=== PATIENT | male | born 1985 | race Caucasian/White ===

== ENCOUNTER → 2019-06-28 | Outpatient (CLI) | payer BC ==
[~2019-06-28] MED LIST: CEPH500 PO; ERYT.5TO OP; HYDACE5 PO; IBUP600 PO; META800 PO; OXYACE5T PO; SULTRIDS PO
== END | disposition home or self-care (01) ==
LOC: PLD 10:37 → LAB SHORT 10:37
DX: D22.4 Melanocytic nevi of scalp and neck (principal)
CPT/HCPCS: 88305

== ENCOUNTER → 2019-07-16 | Outpatient (CLI) | payer BC | END | disposition home or self-care (01) | LOC: PLD 07:49 → LAB SHORT 07:49 | DX: Q82.5 Congenital non-neoplastic nevus (principal) | CPT/HCPCS: 88305 ==

== ENCOUNTER → 2019-08-07 | Outpatient (CLI) | payer BC | END | disposition home or self-care (01) | LOC: PLD 08:49 → LAB SHORT 08:49 | DX: Q82.5 Congenital non-neoplastic nevus (principal) | CPT/HCPCS: 88305 ==